=== PATIENT | female | born 1965 | race African-American/Black ===

== ENCOUNTER 2019-04-22 09:29 | Emergency (ER) | payer OTHER ==
[~2019-04-22] VITALS: Ht 165.1 cm; Wt 90.7 kg
[2019-04-22 09:32] VITALS: BP 141/94
--- NOTE | 2019-04-22 09:49 | PHYS DOC ---
Adult General Chief Complaint Chief Complaint: LOWER EXT PAIN HPI HPI Patient is a 54 year old female presents to the ED complaining of hip pain times one day ago. Patient complains of pain to right hip that radiates down her right leg. Describes the pain as sharp. Rates the pain as 7 out of 10. Pain is worse with range of motion. No injury. Denies bowel/bladder changes, saddle anesthesia, abdominal pain, chest pain, shortness of breath, nausea/vomiting, weakness, dizziness, headache or fever. Review of Systems Review of Systems Constitutional: Denies fever or chills [] Eyes: Denies change in visual acuity, redness, or eye pain [] HENT: Denies nasal congestion or sore throat [] Respiratory: Denies cough or shortness of breath [] Cardiovascular: No additional information not addressed in HPI [] GI: Denies abdominal pain, nausea, vomiting, bloody stools or diarrhea [] : Denies dysuria or hematuria [] Musculoskeletal: Complains of hip pain. Denies back pain. [] Integument: Denies rash or skin lesions [] Neurologic: Denies headache, focal weakness or sensory changes [] All other systems were reviewed and found to be within normal limits, except as documented in this note. Current Medications Current Medications Current Medications Medications (Trade) Dose Ordered Sig/[facility] Start Time Stop Time Status Last Admin Dose Admin Acetaminophen/ Hydrocodone Bitart (Lortab 5/325) 1 tab 1X ONCE 04/22/19 10:30 04/22/19 10:31 DC 04/22/19 10:19 1 TAB Prednisone (Prednisone) 50 mg 1X ONCE 04/22/19 10:30 04/22/19 10:31 DC 04/22/19 10:19 50 MG Allergies Allergies Allergies Coded Allergies Type Severity Reaction Last Updated Verified No Known Drug Allergies 04/22/19 No Physical Exam Physical Exam Constitutional: Well developed, well nourished, no acute distress, non-toxic appearance. [] HENT: Normocephalic, atraumatic Cardiovascular:Heart rate regular rhythm, no murmur [] Lungs & Thorax: Bilateral breath sounds clear to auscultation [] Abdomen: Bowel sounds normal, soft, no tenderness, no masses, no pulsatile masses. [] Skin: Warm, dry, no erythema, no rash. [] Back: No tenderness, no CVA tenderness. [] Extremities: mild right hip tenderness, pain radiates down right leg in nerve distribution. FROM. NV intact. no cyanosis, no clubbing, ROM intact, no edema. [] Neurologic: Alert and oriented X 3, normal motor function, normal sensory function, no focal deficits noted. [] Psychologic: Affect normal, judgement normal, mood normal. [] Current Patient Data Vital Signs Vital Signs Date Time Temp Pulse Resp B/P (MAP) Pulse Ox O2 Delivery O2 Flow Rate FiO2 04/22/19 09:32 98.6 99 20 141/94 (110) 96 Room Air 98.6 EKG EKG [] Radiology/Procedures Radiology/Procedures PROCEDURE: HIP RIGHT 2V WITH PELVIS EXAM: AP pelvis, AP and lateral views right hip DATE: 04/22/2019 12:00 AM INDICATION: Right hip pain COMPARISON: No Prior FINDINGS: There is no evidence for acute fracture or dislocation. Of note, evaluation is limited given the suboptimal radiographic penetration given the overlying prominent soft tissues. Hip joint spaces are grossly preserved. No evidence for SI joint or pubic symphysis diastases. Scattered pelvic phleboliths are seen. IMPRESSION: No evidence for acute fracture or dislocation.[] Course & Med Decision Making Course & Med Decision Making Pertinent Labs and Imaging studies reviewed. (See chart for details) []Discussed imaging findings with patient. Patient's pain improved in the ED. States she is feeling much better. Patient able to ambulate without assistance. Discussed symptomatic treatment and follow-up with orthopedics if pain persists. Provided contact information/education. Discussed reasons to return to the ED. Patient understands and agrees with plan. Dragon Disclaimer Dragon Disclaimer This electronic medical record was generated, in whole or in part, using a voice recognition dictation system. Departure Departure Impression: Primary Impression: Hip pain Disposition: HOME, SELF-CARE Condition: IMPROVED Referrals: Gigi THORPE MD (PCP) Patient Instructions: Hip Pain, Sciatica Scripts Prednisone (PREDNISONE) 50 Mg Tablet 1 TAB PO DAILY for 5 Days, #5 TAB Prov: TC MALONEY 04/22/19 Hydrocodone/Apap 5-325 (NORCO 5-325 TABLET) 1 Each Tablet 1 TAB PO BID for 5 Days, #10 TAB Prov: TC MALONEY 04/22/19 TC MALNOEY Apr 22, 2019 09:49
--- NOTE | 2019-04-22 10:17 | RAD ---
EXAM: AP pelvis, AP and lateral views right hip DATE: 04/22/2019 12:00 AM INDICATION: Right hip pain COMPARISON: No Prior FINDINGS: There is no evidence for acute fracture or dislocation. Of note, evaluation is limited given the suboptimal radiographic penetration given the overlying prominent soft tissues. Hip joint spaces are grossly preserved. No evidence for SI joint or pubic symphysis diastases. Scattered pelvic phleboliths are seen. IMPRESSION: No evidence for acute fracture or dislocation. Electronically signed by: Ramon Alvarez MD (04/22/2019 10:14 AM) [facility]
[2019-04-22] MEDS: predniSONE 10 MG TABLET PO ONE (10:19)
[2019-04-22] MEDS: HYDROcodone/APAP 5/325MG 1 TAB TABLET PO ONE (10:19)
[2019-04-22] MEDS ORDERED: PRED50TA PO (10:27)
[2019-04-22] MEDS ORDERED: HYDR-3164 PO (10:27)
== END 2019-04-22 10:56 | disposition home or self-care (01) ==
LOC: ER 09:29
DX: M25.551 Pain in right hip (principal); M79.604 Pain in right leg
CPT/HCPCS: 73502; 99284; J7512

== ENCOUNTER 2021-03-09 10:57 | Emergency (ER) | payer OTHER ==
[~2021-03-09] VITALS: Ht 170.2 cm; Wt 100.0 kg
[~2021-03-09 10:57] MED LIST: DOXY100C2 PO; HYDR-3164 PO; HYDR115S2 PO; METH4TAB2 PO; PRED50TA PO
[2021-03-09 11:24] VITALS: BP 134/93
[2021-03-09] MEDS ORDERED: DEXAMETHASONE SOD PHOS 20 MG/5 ML VIAL. PO ONE (11:45)
[2021-03-09] MEDS ORDERED: KETOROLAC 60 MG/2 ML VIAL. IM ONE (11:45)
[2021-03-09] MEDS ORDERED: ORPHENADRINE CITRATE 60 MG/2 ML VIAL. IM ONE (11:45)
[2021-03-09] MEDS ORDERED: PRED20TA PO (12:20)
[2021-03-09] MEDS ORDERED: CYCL10TA2 PO (12:20)
--- NOTE | 2021-03-09 12:21 | ED.ADGEN ---
Past Medical History Past Medical History: Asthma, GERD, Sciatica Past Surgical History: No Surgical History Smoking Status: Current Every Day Smoker Alcohol Use: None Drug Use: None General Adult EDM: Chief Complaint: HIP PAIN HPI: HPI: Patient is a 55 year old AA female who presents emergency department with complaints of pain in the right side of her low back that radiates to the right hip and down her leg for the last 4 days. Patient reports a history of sciatica, she states that she has chronic back pain. She denies any new injury or fall. Patient denies any saddle anesthesia or loss of bowel or bladder control. She denies any fever, cough, shortness of breath, abdominal pain, nausea, vomiting, diarrhea, dysuria, hematuria, or increased urinary frequency. She currently rates pain 9 out of 10 on pain scale, she denies any alleviating factors, pain is worse with movement and weightbearing. Review of Systems: Review of Systems: Complete ROS is negative unless otherwise noted in HPI. Current Medications: Current Medications Medications (Trade) Dose Ordered Sig/[facility] Start Time Stop Time Status Last Admin Dose Admin Dexamethasone Sodium Phosphate (Decadron) 10 mg 1X ONCE 03/09/21 11:45 03/09/21 11:46 DC 03/09/21 12:08 10 MG Ketorolac Tromethamine (Toradol Im) 30 mg 1X ONCE 03/09/21 11:45 03/09/21 11:46 DC 03/09/21 12:09 30 MG Orphenadrine Citrate (Norflex) 60 mg 1X ONCE 03/09/21 11:45 03/09/21 11:46 DC 03/09/21 12:09 60 MG Allergies: Allergies: Allergies Coded Allergies Type Severity Reaction Last Updated Verified No Known Drug Allergies 04/22/19 No Physical Exam: PE: See Above Constitutional: Well developed, well nourished, no acute distress, non-toxic appearance, obese. [] HENT: Normocephalic, atraumatic, bilateral external ears normal, nose normal. [] Eyes: PERRLA, EOMI, conjunctiva normal, no discharge. [] Neck: Normal range of motion, no stridor. [] Cardiovascular:Heart rate regular rhythm Lungs & Thorax: Respirations even and unlabored, no retractions, no respiratory distress Back: No bony tenderness, right lumbar paraspinal tenderness to palpation, increased pain and radiation of pain to right lower extremity with straight leg lift. Skin: Warm, dry, no erythema, no rash. [] Extremities: No cyanosis, ROM intact, no edema. [] Neurologic: Alert and oriented X 3, no focal deficits noted. [] Psychologic: Affect normal, judgement normal, mood normal. [] EKG: EKG: [] Heart Score: C/O Chest Pain: No Risk Scores: Score 0 - 3: 2.5% MACE over next 6 weeks - Discharge Home Score 4 - 6: 20.3% MACE over next 6 weeks - Admit for Clinical Observation Score 7 - 10: 72.7% MACE over next 6 weeks - Early Invasive Strategies Radiology/Procedures: Radiology/Procedures: [] Course & Med Decision Making: Course & Med Decision Making Pertinent Labs and Imaging studies reviewed. (See chart for details) [] 55-year-old female presents emergency department with complaints of right- sided low back pain and sciatica. Patient was given 10 mg of p.o. Decadron, 60 mg of IM Norflex, and 30 mg of IM Toradol. She reported feeling better after these medications. Prescription written for 12-day taper of prednisone, patient informed to begin this tomorrow, and Flexeril as needed. Patient advised to follow-up with primary care doctor in the next 1 to 2 days, return to ER if symptoms worsen. Patient verbalized an understanding of home care, medications, follow-up, and return to ED instructions and was in agreement with the plan of care. Susanne Disclaimer: Susanne Disclaimer: This electronic medical record was generated, in whole or in part, using a voice recognition dictation system. Departure Departure Impression: Primary Impression: Acute low back pain with right-sided sciatica Disposition: HOME / SELF CARE / HOMELESS Condition: STABLE Referrals: Gigi THORPE MD (PCP) Patient Instructions: Sciatica, [id number] Additional Instructions: Fill the prescription(s) and use as directed. Apply heat or ice for to sore areas as needed for comfort. Activity as tolerated. Follow up with your primary care doctor this week if symptoms persist, return to the ER if symptoms worsen or you develop a fever. Scripts Cyclobenzaprine Hcl (CYCLOBENZAPRINE HCL) 10 Mg Tablet 1 TAB PO TID PRN for MUSCLE PAIN for 10 Days, #30 TAB 0 Refills Prov: BOGUSLAW,MANOHAR D RN [employer] 03/09/21 Prednisone (PREDNISONE) 20 Mg Tablet 1 TAB PO UD for 12 Days, #15 TAB 2 tabs by mouth days 1,2,3 then 1.5 tabs by mouth days 4,5,6 then 1 tab by mouth days 7,8,9 then 0.5 tab by mouth day 10,11,12 Prov: MANOHAR ALLRED APRN 03/09/21 Problem Qualifiers Primary Impression: Acute low back pain with right-sided sciatica Back pain laterality: right Qualified Codes: M54.41 - Lumbago with sciatica, right side MANOHAR ALLRED APRN March 09, 2021 12:21
== END 2021-03-09 12:50 | disposition home or self-care (01) ==
LOC: ER 10:57
DX: M54.41 Lumbago with sciatica, right side (principal); G89.29 Other chronic pain; K21.9 Gastro-esophageal reflux disease without esophagitis; J45.909 Unspecified asthma, uncomplicated; F17.200 Nicotine dependence, unspecified, uncomplicated
CPT/HCPCS: 96372; 99284; J1100; J1885; J2360

== ENCOUNTER → 2021-03-31 | Outpatient (CLI) | payer OTHER ==
[2021-03-09 11:24] VITALS: BP 134/93
[~2021-03-31] MED LIST changes: +CYCL10TA2 PO; +PRED20TA PO
--- NOTE | 2021-04-01 11:33 | RAD ---
DATE: 03/31/2021 EXAM: DIGITAL SCREEN BILAT W/CAD HISTORY: Screening COMPARISON: 11/09/2010 and 05/27/2009 This study was interpreted with the benefit of Computerized Aided Detection (CAD). Breast Density: HETERO The breast parenchyma is heterogenously dense, which could reduce sensitivity of mammography. Breast parenchyma level C. FINDINGS: No mass, suspicious calcification, or architectural distortion in either breast. IMPRESSION: No evidence of malignancy. BI-RADS CATEGORY: 1 NEGATIVE RECOMMENDED FOLLOW-UP: 12M 12 MONTH FOLLOW-UP PQRS compliance statement: Patient information was entered into a reminder system with a target due date for the next mammogram. Mammography is a sensitive method for finding small breast cancers, but it does not detect them all and is not a substitute for careful clinical examination. A negative mammogram does not negate a clinically suspicious finding and should not result in delay in biopsying a clinically suspicious abnormality. "Our facility is accredited by the [employer] Mammography Program."
== END ==
LOC: MAMMO 14:30
PROVIDERS: ATTEND Family Medicine
DX: Z12.31 Encounter for screening mammogram for malignant neoplasm of breast (principal)
CPT/HCPCS: 77067